=== PATIENT | male | born 1965 | race Two or more races ===

== ENCOUNTER 2017-03-18 10:18 | Day surgery (SDC) | payer OTHER ==
[~2017-03-18] VITALS: Ht 171.4 cm; Wt 136.1 kg
[2017-03-18] VITALS (8 sets, daily range): BP systolic 119–137; BP diastolic 76–90
--- NOTE | 2017-03-18 07:03 | Pre-Procedure Note/Attestation ---
Pre-Procedure Note/Attestation Complete Prior to Procedure Planned Procedure: right Procedure Narrative: rt knee scope, medial meniscectomy Indications for Procedure Pre-Operative Diagnosis: rt knee medial meniscus tear Attestation I attest that I discussed the nature of the procedure; its benefits; risks and complications; and alternatives (and the risks and benefits of such alternatives ), prior to the procedure, with the patient (or the patient's legal advertising representative). I attest that, if there was a reasonable possibility of needing a blood transfusion, the patient (or the patient's legal advertising representative) was given the [facility] standardized written summary, pursuant to the [place] Blood Safety Act ([place] Health and Safety Code # 1645, as amended). I attest that I re-evaluated the patient just prior to the surgery and that there has been no change in the patient's H&P, except as documented below: NONE JADA LYNCH Mar 18, 2017 07:02
[~2017-03-18 10:18] MED LIST: NKM; ceFAZolin 1gm in D5W 55ml IVP ONE; celeBREX 200mg Cap **SURGERY PATIENTS ONLY ORAL ONE; oxyCONTIN 20mg tab ORAL ONE
--- NOTE | 2017-03-18 10:32 | Anethesia Preoperative Eval ---
Anesthesia Pre-op PMH/ROS General Date of Evaluation: Mar 18, 2017 Anesthesiologist: John ASA Score: ASA 3 Mallampati Score Class I : Soft palate, uvula, fauces, pillars visible Class II: Soft palate, uvula, fauces visible Class III: Soft palate, base of uvula visible Class IV: Only hard plate visible Mallampati Classification: Class III Surgeon: Todd Diagnosis: Right knee meniscal tear Surgical Procedure: Right knee arthroscopy, medial meniscectomy Anesthesia History: none Family History: no anesthesia problems Allergies: Coded Allergies: No Known Allergies (Unverified , 03/18/17) Medications: see eMAR Past Medical History Cardiovascular: Denies: HTN, CAD, MA, valve dz, arrhythmia, other Pulmonary: Reports: COPD, JODY, Denies: asthma, other Gastrointestinal/Genitourinary: Reports: other - kidney Cancer, Denies: GERD, CRI, ESRD Neurologic/Psychiatric: Denies: dementia, CVA, depression/anxiety, TIA, other Endocrine: Denies: DM, hypothyroidism, steroids, other HEENT: Denies: cataract (L), cataract (R), glaucoma, TOGIAK (L), TOGIAK (R), other Hematology/Immune: Denies: anemia, DVT, bleeding disorder, other Musculoskeletal/Integumentary: Denies: OA, RA, DJD, DDD, edema, other Other: obesity PSxH Narrative: lap aracelis, UHR, left nephrectomy Anesthesia Pre-op Phys. Exam Physician Exam see chart Constitutional: NAD Cardiovascular: RRR Respiratory: CTA Airway Exam Mallampati Score: Class III MO: full ROM: limited Teeth: intact Anesthesia Pre-op A/P Labs see chart Studies Pre-op Studies: EKG - sr Risk Assessment & Plan Assessment: ASA III Plan: GA Status Change Before Surgery: No Pre-Antibiotics Drug: Ancef 2g Given Within 1 Hr of Incision: Yes MENG NAPIER M.D. Mar 18, 2017 10:32
[2017-03-18] MEDS ORDERED: Ropivacaine 5mg/ml Vial 30ml INJ ONE ×2 (11:24→13:10)
[2017-03-18] MEDS ORDERED: Propofol 200mg/20ml IV ONE (12:00)
[2017-03-18] MEDS ORDERED: LR 1000ml ONE (12:00)
[2017-03-18] MEDS ORDERED: NS Irrig 4000ml IRRIG ONE (13:01)
--- NOTE | 2017-03-18 13:19 | Anethesia Preoperative Eval ---
Anesthesia Pre-op PMH/ROS General Date of Evaluation: Mar 18, 2017 Time of Evaluation: 12:00 ASA Score: ASA 3 Mallampati Score Class I : Soft palate, uvula, fauces, pillars visible Class II: Soft palate, uvula, fauces visible Class III: Soft palate, base of uvula visible Class IV: Only hard plate visible Mallampati Classification: Class II Anesthesia History: difficult airway Allergies: Coded Allergies: No Known Allergies (Unverified , 03/18/17) Past Medical History Pulmonary: Reports: COPD, JODY Other: obesity Anesthesia Pre-op Phys. Exam Physician Exam Last Vital Signs Date Time Temp Pulse Resp B/P (MAP) Pulse Ox O2 Delivery O2 Flow Rate FiO2 03/18/17 11:01 98.3 59 19 127/83 96 Room Air Airway Exam Mallampati Score: Class III Ryan Summers MD Mar 18, 2017 13:19
[2017-03-18] MEDS ORDERED: fentaNYL 100 mcg/2 mL IV PRN (13:30)
[2017-03-18] MEDS ORDERED: Ketorolac 30mg Inj IV PRN (13:30)
--- NOTE | 2017-03-18 13:34 | Immediate Post-Op Evaluation ---
Immediate Post-Op Evalulation Immediate Post-Op Evalulation Procedure: knee arthroscopy Date of Evaluation: Mar 18, 2017 Time of Evaluation: 13:34 Nausea: No Vomiting: No ERIN RODRIGUEZ CRNA Mar 18, 2017 13:34
--- NOTE | 2017-03-18 13:42 | Brief Operative Note ---
Immediate Post Operative Note Operative Note Chief Complaint: rt knee pain Pre-op Diagnosis: rt knee medial meniscus tear Procedure: rt knee scope, medial meniscectomy Post-op Diagnosis: same as pre-op Findings: consistent w/pre-op dx studies Surgeon: [email or web address]. toscano Salesperson Household Appliances: marichuy peck Anesthesiologist: md raquel Anesthesia: general Specimen: none Complications: none Condition: stable Fluids: ns Estimated Blood Loss: minimal Drains: none Implant(s) used?: No REJI PECK Mar 18, 2017 13:42
[2017-03-18] MEDS ORDERED: D5 1/2NS 1,000 ML IV SCH (19:31)
[2017-03-18] MEDS ORDERED: HYDROmorphone 1mg/ml Carpuject SUBQ PRN (19:31)
[2017-03-18] MEDS ORDERED: Norco 5mg/325mg tab ORAL PRN (19:31)
[2017-03-18] MEDS ORDERED: Tylenol #3 tab (300mg/30mg) ORAL PRN (19:31)
--- NOTE | 2017-03-18 23:15 | Operative Note - Dictated ---
DATE OF OPERATION: 03/18/2017 PREOPERATIVE DIAGNOSIS: Right knee posterior horn of medial meniscus tearing. POSTOPERATIVE DIAGNOSES: 1. Right knee posterior horn of medial meniscus tearing. 2. Grade 2 and grade 3 chondral damage over the medial femoral condyle with a small chondral flap. PROCEDURE: 1. Right knee arthroscopy and extensive intra-articular shaving. 2. Right knee partial medial meniscectomy involving 35% of posterior horn and body of the medial meniscus. 3. Right knee medial femoral chondroplasty of chondral flap. SURGEON: Tarik Brooks M.D. STEM PROCESSING MACHINE OPERATOR: Sara Oliveira PA-C. Resource Development Manager was present during the actual operative portion of the case and was important and essential part of the operation. During the operation, the therapeutic recreation assistant held and operated the arthroscopic camera for visualization, assisted by manipulating the leg to help with visualization, and helped with essential parts of the repair process as necessary such as operating surgical instruments under surgeon supervision, suture management, and wound closures. ANESTHESIOLOGIST: Dr. Ulloa. ANESTHESIA: LMA anesthesia. TOURNIQUET TIME: 20 minutes. ESTIMATED BLOOD LOSS: Minimal. COMPLICATIONS: None. SURGICAL INDICATION: The patient is a 51-year-old male who sustained the above injury to his knee. The patient was treated non-operative initially, but this did not alleviate the patients symptoms. Therefore, after discussing all non-surgical and surgical options, and discussing all foreseeable risk and benefits of surgery, the patient opted for surgical treatment as described above. PATIENT POSITIONING: The patient was brought to the operating room table and placed supine. All pressure points were well padded. General anesthesia was induced and a well-padded tourniquet was placed on the thigh. The lateral post was placed and positioned to allow for opening of the medial compartment of the knee without placing pressure over the fibular head. The patients entire leg was prepped and draped in the usual sterile fashion. Time-out was performed and preop antibiotic was given and after exsanguinating the lower extremity, the tourniquet was inflated to 275 mmHg. EXAMINATION OF THE KNEE UNDER ANESTHESIA: Before prepping and draping the knee and while the patient was relaxed under general anesthesia, the knee was examined for ROM, and anterior and posterior, medial and lateral, posterolateral, and posteromedial instability. Pivot shift testing was performed. There was no evidence of loss of motion or instability and the pivot-shift testing was negative. PORTAL PLACEMENT: The lateral portal was placed with the knee flexed to 90 degrees at the level of inferior border of the patella in line with the lateral border of the patella. A 0.5 cm skin incision was made with an #11 blade, and using a blunt obturator, the capsule was gently penetrated. Sterile saline solution was then infused inside the knee with the aid of a pump set at 35 mmHg pressure. Under direct visualization, placement of the medial portal was preliminarily judged using a spinal needle, and it was subsequently established using the same technique as the lateral portal. Care was given not to injure the cutaneous branches of the medial saphenous nerve or the subcutaneous veins. DIAGNOSTIC ARTHROSCOPY: The suprapatellar pouch was visualized. There was no evidence of scar tissue or loose fragments. The medial and lateral patellar facets and trochlear groove articular cartilage was visualized. These structures were intact and were devoid of any articular cartilage damage. The medial plica shelf and the corresponding medial femoral condyle articular cartilage were visualized. There was no significant thickening of the medial plica shelf and there were no kissing? lesion over the medial femoral condyle. The lateral gutter and the posterolateral corner of the knee were visualized. There were no loose bodies, and the popliteus tendon and other structures of the posterolateral corner of the knee were intact intra-articularly. At this point, the knee was placed in the [id number] position and the lateral compartment was entered. The lateral femoral condyle, lateral tibial plateau, and the anterior body and the posterior horn of the lateral meniscus were visualized and probed. The articular surfaces were intact and devoid of articular cartilage damage. The lateral meniscus was completely intact both on its undersurface and on the top. The knee was then placed at 90 degree and the ACL and PCL were visualized and probed. The ACL was completely intact on visualization and probing, and it had excellent tension. The PCL was completely intact on visualization and probing and it had excellent tension. The medial compartment was then entered and the medial femoral condyle, medial tibial plateau, and the anterior body and the posterior horn of the medial meniscus were visualized and probed. There was some chondral damage right over the medial meniscus with some grade 2 and grade 3 chondromalacia over the medial femoral condyle measuring 1 x 1 cm. This was consistent with chondral surface rubbing with torn medial meniscus. There was a complex tear of the posterior horn and body of the medial meniscus. The medial gutter was visualized. There was no evidence of defect or loose fragments. The scope was then brought back to the patellofemoral compartment. OPERATIVE ARTHROSCOPY: At this point, all loose debris and fragments were removed with the use of suction motorized shaver. Specific attention was given to assure all visible loose fragments were irrigated out of the knee joint with pump inflow and cannula outflow system. At this point, attention was given to the medial meniscus. Using combination of baskets and karen, the torn portion of the medial meniscus was removed. Attention was given to remove all displaced and unstable portion of the medial meniscus while maintaining as much of the functional portion of the meniscus as possible. Approximately, 35% of the posterior horn and body of the medial meniscus was removed in this fashion. The transition between the meniscectomy portion and intact portion of the meniscus was smoothed out with combination of small baskets and karen. Excellent transition zone was obtained in this fashion. Care was given to the area of cartilage damage in the medial compartment. The frayed and loose fragments of articular cartilage were debrided using a motorized shaver. Suction was used to pull in the loose fragments and flaps of the cartilage and to minimize damage to the intact and well-attached portion of the cartilage. This allowed for smooth surfaces for the articular cartilage. CONDITION AT DISCHARGE FROM OPERATING ROOM: The knee was irrigated with copious amount of normal saline at the end of the procedure. The scope was removed and the water was drained. The skin edges were reapproximated and sterile dressing was applied. All lap count and instrument counts were correct. The patient tolerated the procedure well without complications and was taken to the recovery room in stable conditions. Tarik Brooks M.D. DR: Aneesh JOB#: [id number] CC:
== END 2017-03-18 12:15 | disposition home or self-care (01) ==
LOC: SUR 10:18
DX: S83.241A Other tear of medial meniscus, current injury, right knee, initial encounter (principal); J44.9 Chronic obstructive pulmonary disease, unspecified; G47.33 Obstructive sleep apnea (adult) (pediatric); E66.9 Obesity, unspecified; Z68.42 Body mass index [BMI] 45.0-49.9, adult; Z85.528 Personal history of other malignant neoplasm of kidney; Z90.49 Acquired absence of other specified parts of digestive tract; Z90.5 Acquired absence of kidney; X58.XXXA Exposure to other specified factors, initial encounter; Y93.9 Activity, unspecified; Y92.9 Unspecified place or not applicable
CPT/HCPCS: 29877; 29881; 97161; J0690; J2704; J2795; J7120; 94003; 94150